=== PATIENT | female | born 1990 | race Caucasian/White ===

== ENCOUNTER 2019-01-30 15:00 | Emergency (ER) | payer OTHER ==
[~2019-01-30] VITALS: Ht 172.7 cm; Wt 72.6 kg
[2019-01-30] MEDS ORDERED: BUTALB-APAP-CA1 EACH PO (16:27)
[2019-01-30 16:45] VITALS: BP 150/104
== END 2019-01-30 16:42 | disposition home or self-care (01) ==
LOC: ER 15:00
DX: S80.211A Abrasion, right knee, initial encounter (principal); S80.212A Abrasion, left knee, initial encounter; S50.312A Abrasion of left elbow, initial encounter; S09.8XXA Other specified injuries of head, initial encounter; V18.4XXA Pedal cycle driver injured in noncollision transport accident in traffic accident, initial encounter; Y93.89 Activity, other specified; Y92.89 Other specified places as the place of occurrence of the external cause; Y99.8 Other external cause status